=== PATIENT | female | born 1995 | race Caucasian/White ===

== ENCOUNTER 2020-10-16 15:04 | Emergency (ER) | payer BC ==
[2020-10-16] MEDS ORDERED: Sodium Chloride 0.9% 1,000 ML IV ONE (15:15)
[2020-10-16] MEDS ORDERED: Acetaminophen 500 MG Tab PO ONE (15:16)
--- NOTE | 2020-10-16 15:25 | EDM.PDOC ---
ED HPI GENERAL MEDICAL PROBLEM - General Chief Complaint: Fever Stated Complaint: PAIN AND FEVER AFTER DELIVERY Time Seen by Provider: 10/16/20 15:21 Source of Information: Reports: Patient History Limitations: Reports: No Limitations - History of Present Illness INITIAL COMMENTS - FREE TEXT/NARRATIVE: Patient developed a fever to 101.8, chills, and RLQ abdominal pain today. Pain radiates to the lower back. She is 5 days post s/p complicated by 4th degree vaginal tear. Denies foul smelling vaginal discharge, cough, or N/V/D. No prior h/o abdominal surgeries. Onset: Today Location: Reports: Abdomen R lower abd & lower back pain Pain Score (Numeric/FACES): 5 - Related Data Allergies Allergy/AdvReac Type Severity Reaction Status Date / Time No Known Allergies Allergy Verified 10/16/20 15:35 Home Meds: Home Meds Amoxicillin/Clavulanate K [Augmentin 875-125 MG] 1 tab PO BID #20 tablet 10/16/20 [Rx] Vit No.78/Iron/Fa [Prenatabs FA] 1 each PO DAILY 10/16/20 [History] Past Medical History - Past Health History Medical/Surgical History: Denies Medical/Surgical History ED ROS GENERAL - Review of Systems Review Of Systems: Comprehensive ROS is negative, except as noted in HPI. ED EXAM, GENERAL - Physical Exam Exam: See Below Exam Limited By: No Limitations General Appearance: Alert, WD/WN, No Apparent Distress, Other (Non-toxic appearing) Nose: Normal Inspection Throat/Mouth: No Airway Compromise Head: Atraumatic, Normocephalic Neck: Full Range of Motion Respiratory/Chest: No Respiratory Distress, Lungs Clear, Normal Breath Sounds Cardiovascular: Regular Rate, Rhythm, No Murmur GI/Abdominal: Normal Bowel Sounds, Soft, No Distention, Tender (mild RLQ tenderness) Back Exam: No: CVA Tenderness (R), CVA Tenderness (L) Extremities: Normal Range of Motion Neurological: Alert, Normal Cognition Psychiatric: Normal Affect, Normal Mood Skin Exam: Warm, Dry, Intact, Normal Color, No Rash Course - Vital Signs Last Recorded V/S: Last Vital Signs Temp 38.9 C H 10/16/20 17:11 Pulse 111 H 10/16/20 16:22 Resp 18 10/16/20 16:22 BP 112/95 H 10/16/20 16:22 Pulse Ox 100 10/16/20 16:22 - Orders/Labs/Meds Orders: Active Orders 24 hr Category Date Time Status CULTURE BLOOD [BC] Urgent Lab 10/16/20 15:20 Received CULTURE BLOOD [BC] Urgent Lab 10/16/20 15:25 Received CULTURE URINE [RM] Stat Lab 10/16/20 16:08 Ordered Blood Culture x2 Reflex Set [OM.PC] Urgent Oth 10/16/20 15:15 Ordered Isolation [COMM] Routine Oth 10/16/20 15:06 Ordered Labs: Laboratory Tests 10/16/20 10/16/20 10/16/20 Range/Units 15:05 15:20 15:20 WBC 13.7 H (3.0-10.3) x10-3/uL RBC 3.43 L (3.60-5.20) x10(6)uL Hgb 9.9 L (11.4-15.5) g/dL Hct 31.0 L (34.2-48.2) % MCV 90.3 (76.7-100.5) fL MCH 28.9 (23.9-33.9) pg MCHC 32.0 (31.9-34.8) g/dL RDW 13.3 (12.3-16.5) % Plt Count 391 (151-488) x10(3)uL MPV 7.4 (7.1-12.4) fL Neut % (Auto) 88.8 H (30.8-76.2) % Lymph % (Auto) 6.3 L (18.4-52.1) % [place] % (Auto) 4.6 (4.4-15.7) % Eos % (Auto) 0.2 L (0.6-8.1) % Baso % (Auto) 0.1 L (0.2-1.5) % Neut # (Auto) 12.2 H (1.5-6.3) x10-3/uL Lymph # (Auto) 0.9 L (1.0-4.4) x10-3/uL [place] # (Auto) 0.6 (0.3-1.0) x10-3/uL Eos # (Auto) 0.0 (0.0-0.8) x10-3/uL Baso # (Auto) 0.0 (0.0-0.1) x10-3/uL Sodium 136 (135-145) mmol/L Potassium 3.5 (3.5-5.3) mmol/L Chloride 101 (100-110) mmol/L Carbon Dioxide 23 (21-32) mmol/L BUN 11 (7-18) mg/dL Creatinine 0.8 (0.55-1.02) mg/dL Est Cr Clr Drug Dosing 104.54 mL/min Estimated GFR (MDRD) > 60 (>60) BUN/Creatinine Ratio 13.8 (9-20) Glucose 102 (80-116) mg/dL Lactic Acid (0.4-2.0) mmol/L Calcium 8.1 L (8.6-10.2) mg/dL Total Bilirubin 0.8 (0.1-1.3) mg/dL AST 29 H (5-25) IU/L ALT 57 H (12-36) U/L Alkaline Phosphatase 132 H (56-112) IU/L Total Protein 7.2 (6.0-8.0) g/dL Albumin 3.1 L (3.5-5.2) g/dL Globulin 4.1 g/dL Albumin/Globulin Ratio 0.8 Urine Color Yellow (YELLOW) Urine Appearance Slightly cloudy (CLEAR) Urine pH 5.0 (5.0-6.5) Ur Specific [place] 1.020 (1.010-1.025) Urine Protein Trace (NEGATIVE) mg/dL Urine Glucose (UA) Normal (NORMAL) mg/dL Urine Ketones 15 H (NEGATIVE) mg/dL Urine Occult Blood Large H (NEGATIVE) Urine Nitrite Negative (NEGATIVE) Urine Bilirubin Negative (NEGATIVE) Urine Urobilinogen Normal (NEGATIVE) mg/dL Ur Leukocyte Esterase Large H (NEGATIVE) Urine RBC 10-20 H (0-5) Urine WBC 10-20 H (0-5) Ur Squamous Epith Cells Occasional (NS,R,O) Urine Bacteria Few H (NS) Urine Mucus Moderate H (NS) SARS-CoV-2 RNA (STIVEN) (NEGATIVE) 10/16/20 10/16/20 Range/Units 15:25 15:29 WBC (3.0-10.3) x10-3/uL RBC (3.60-5.20) x10(6)uL Hgb (11.4-15.5) g/dL Hct (34.2-48.2) % MCV (76.7-100.5) fL MCH (23.9-33.9) pg MCHC (31.9-34.8) g/dL RDW (12.3-16.5) % Plt Count (151-488) x10(3)uL MPV (7.1-12.4) fL Neut % (Auto) (30.8-76.2) % Lymph % (Auto) (18.4-52.1) % [place] % (Auto) (4.4-15.7) % Eos % (Auto) (0.6-8.1) % Baso % (Auto) (0.2-1.5) % Neut # (Auto) (1.5-6.3) x10-3/uL Lymph # (Auto) (1.0-4.4) x10-3/uL [place] # (Auto) (0.3-1.0) x10-3/uL Eos # (Auto) (0.0-0.8) x10-3/uL Baso # (Auto) (0.0-0.1) x10-3/uL Sodium (135-145) mmol/L Potassium (3.5-5.3) mmol/L Chloride (100-110) mmol/L Carbon Dioxide (21-32) mmol/L BUN (7-18) mg/dL Creatinine (0.55-1.02) mg/dL Est Cr Clr Drug Dosing mL/min Estimated GFR (MDRD) (>60) BUN/Creatinine Ratio (9-20) Glucose (80-116) mg/dL Lactic Acid 0.8 (0.4-2.0) mmol/L Calcium (8.6-10.2) mg/dL Total Bilirubin (0.1-1.3) mg/dL AST (5-25) IU/L ALT (12-36) U/L Alkaline Phosphatase (56-112) IU/L Total Protein (6.0-8.0) g/dL Albumin (3.5-5.2) g/dL Globulin g/dL Albumin/Globulin Ratio Urine Color (YELLOW) Urine Appearance (CLEAR) Urine pH (5.0-6.5) Ur Specific [place] (1.010-1.025) Urine Protein (NEGATIVE) mg/dL Urine Glucose (UA) (NORMAL) mg/dL Urine Ketones (NEGATIVE) mg/dL Urine Occult Blood (NEGATIVE) Urine Nitrite (NEGATIVE) Urine Bilirubin (NEGATIVE) Urine Urobilinogen (NEGATIVE) mg/dL Ur Leukocyte Esterase (NEGATIVE) Urine RBC (0-5) Urine WBC (0-5) Ur Squamous Epith Cells (NS,R,O) Urine Bacteria (NS) Urine Mucus (NS) SARS-CoV-2 RNA (STIVEN) Negative (NEGATIVE) Meds: Medications Discontinued Medications Generic Name Dose Route Start Last Admin Trade Name Freq PRN Reason Stop Dose Admin Acetaminophen 1,000 mg 10/16/20 15:16 10/16/20 15:30 Tylenol Extra Strength PO 10/16/20 15:17 1,000 mg ONETIME ONE Administration Amoxicillin/Clavulanate Potassium 1 tab 10/16/20 17:35 10/16/20 17:44 Augmentin 875 Mg/125 Mg PO 10/16/20 17:36 1 tab ONETIME ONE Administration Sodium Chloride 1,000 mls @ 999 mls/hr 10/16/20 15:15 10/16/20 15:25 Normal Saline IV 10/16/20 16:15 999 mls/hr .BOLUS ONE Administration Ibuprofen 600 mg 10/16/20 16:28 10/16/20 16:36 Motrin PO 10/16/20 16:29 600 mg ONETIME ONE Administration Iopamidol 100 ml 10/16/20 16:11 10/16/20 16:57 Isovue-370 (76%) IV 10/16/20 16:12 77 ml . DIRECTED ONE Administration - Radiology Interpretation Free Text/Narrative:: CT Abd/Pelvis w/ IV contrast: Normal appearance of Uterus. Small amount of fluid in the endometrial cavity. Unable to visualize appendix but no secondary signs of appendicitis. (verbal report from Dr. Fuller) - Re-Assessments/Exams Free Text/Narrative Re-Assessment/Exam: 10/16/20 17:38 Temp improved to 101.5 F and HR improved to 114 after 1L NS IV bolus, Tylenol 1g PO, and Ibuprofen 600mg PO. Patient care discussed with Dr. Mitchell ([facility]), recommends rx Augmentin and follow up in 1 week, sooner if symptoms worsen or fever persists >48hrs. Departure - Departure Time of Disposition: 17:41 Disposition: Home, Self-Care 01 Condition: Good Clinical Impression: endometritis - Discharge Information *PRESCRIPTION DRUG MONITORING PROGRAM REVIEWED*: No *COPY OF PRESCRIPTION DRUG MONITORING REPORT IN PATIENT LEAH: Not Applicable Prescriptions: Amoxicillin/Clavulanate K [Augmentin 875-125 MG] 1 tab PO BID #20 tablet Instructions: Endometritis Referrals: Gael Ridley MD [Primary Care Provider] - Forms: ED Department Discharge Additional Instructions: Fill the prescription for Augmentin at [facility] in [place] and take as directed. Drink plenty of fluids. Alternate Tylenol and Ibuprofen every 3 hours as needed to control fever. Follow up with [facility] in 1 week, sooner if symptoms worse, or if fevers persist longer than 48 hours while on antibiotics. You may continue but call your doctor if baby develops a rash, diarrhea or restlessness. Sepsis Event Note (ED) - Focused Exam Vital Signs: Vital Signs Temp Temp Pulse Resp BP Pulse Ox 10/16/20 17:11 38.9 C H 10/16/20 16:36 39.5 C H 10/16/20 16:22 39.5 C H 111 H 18 112/95 H 100 10/16/20 15:04 39.5 C H 148 H 20 104/69 99 - My Orders Last 24 Hours: My Active Orders 10/16/20 15:06 Isolation [COMM] Routine 10/16/20 15:15 Blood Culture x2 Reflex Set [OM.PC] Urgent 10/16/20 15:20 CULTURE BLOOD [BC] Urgent 10/16/20 15:25 CULTURE BLOOD [BC] Urgent 10/16/20 16:08 CULTURE URINE [RM] Stat - Assessment/Plan Last 24 Hours: My Active Orders 10/16/20 15:06 Isolation [COMM] Routine 10/16/20 15:15 Blood Culture x2 Reflex Set [OM.PC] Urgent 10/16/20 15:20 CULTURE BLOOD [BC] Urgent 10/16/20 15:25 CULTURE BLOOD [BC] Urgent 10/16/20 16:08 CULTURE URINE [RM] Stat
[2020-10-16] MEDS ORDERED: Iopamidol 755 Mg/ML 100 ML Bottle IV ONE (16:11)
[2020-10-16] MEDS ORDERED: Ibuprofen 600 MG Tab PO ONE (16:28)
[2020-10-16] MEDS ORDERED: Amoxicillin/Clavulanate K 875-125 MG Tab PO ONE (17:35)
--- NOTE | 2020-10-16 17:35 | CT ---
INDICATION: Abdominal pain, fever, white blood count elevation. Recent vaginal delivery 4-[address] ABDOMEN AND PELVIS WITH CONTRAST: Spiral 3.75 mm axial sections were obtained through the abdomen and pelvis with 77 mL Isovue-370 at 1.6 cc/second with sagittal and coronal reconstructions 10/16/20 - no comparisons. Total exam DLP was 572.79 mGy-cm. The heart appeared normal in size. No pericardial effusion was seen. An active infiltrate or effusion was not identified. The upper abdominal organs appeared normal including the liver, gallbladder, adrenals, kidneys, spleen, and pancreas as well as common bile duct. No retroperitoneal mass was seen. The appendix was not definitely visualized. No free air or definite bowel obstruction was identified. There are multiple loops of small bowel filled with fluid without gross air- fluid levels to strongly suggest a mechanically obstructive process. A process such as gastroenteritis would be a consideration. The uterus is prominent as is the endometrial cavity with fluid present in the endometrial cavity most likely on the basis of recent vaginal delivery, but should be correlated clinically as a possibility of endometritis. The urinary bladder appeared normal. No other organomegaly, mass lesions or free fluid collections were identified in the abdomen or pelvis. IMPRESSION: Essentially normal CT of the abdomen and pelvis with contrast - prominent uterus - fluid in the endometrial cavity - correlate clinically. Report was called to Dr. Sherwood at 1712 hours. [facility]
[2020-10-16 18:12] VITALS: BP 111/65; PULSE 109
== END 2020-10-16 17:53 | disposition home or self-care (01) ==
LOC: FB.ED 15:04
DX: O86.12 Endometritis following delivery (principal); Z20.822 Contact with and (suspected) exposure to COVID-19
CPT/HCPCS: 36415; 74177; 80053; 81001; 83605; 85025; 87040; 87086; 87088; 87186; 87635; 87804; 99284; A9270; J7030; Q9967; 99283; U0002